=== PATIENT | female | born 1955 | race Caucasian/White ===

== ENCOUNTER 2020-03-27 16:39 | Emergency (ER) | payer BC ==
[2020-03-27 16:51] VITALS: BP 156/82; PULSE 81
[2020-03-27] MEDS ORDERED: LORazepam 2 MG/ML SDV IVPUSH ONE (17:33)
[2020-03-27] MEDS ORDERED: Sodium Chloride 0.9% 1,000 ML IV SCH (17:45)
[2020-03-27] MEDS ORDERED: predniSONE 20 MG Tab PO ONE (19:01)
--- NOTE | 2020-03-27 19:12 | EDM.PDOC ---
ED HPI GENERAL MEDICAL PROBLEM - General Chief Complaint: Chest Pain Stated Complaint: CHEST PAIN AND SOB Time Seen by Provider: 03/27/20 17:20 Source of Information: Reports: Patient History Limitations: Reports: No Limitations - History of Present Illness INITIAL COMMENTS - FREE TEXT/NARRATIVE: Patient is a 64-year-old female who presents to the emergency department with complaints of a one-month history of chest wall pain and shortness of breath. She states the symptoms have been occurring since she had pulmonary function tests done. The results of these pulmonary function test is that she has COPD. She has been seen in the clinic numerous times for the symptoms. She was started on Xanax which she states did not help, however she was only taking a couple occasions. She was seen in the clinic today by Megan Aldana. She started her on venlafaxine for anxiety, which she was under the impression would start working right away. He states that they also did a blood work including a troponin level at the clinic and that was found to be normal. They did check her TSH and T4, however those results would not be available until tomorrow. When she got home this evening from the clinic, her symptoms worsen. She complains of significant tightness throughout her chest and into her back and neck that worsens with breathing. She states that humidity aggravates her symptoms. She has never had treatment for COPD. Denies any fever, chills, nausea, or vomiting. Middle Chest Pain Score (Numeric/FACES): 10 - Related Data Allergies Allergy/AdvReac Type Severity Reaction Status Date / Time No Known Allergies Allergy Verified 03/27/20 16:51 Home Meds: Home Meds ALPRAZolam [Xanax] 0.25 mg PO BID PRN 03/27/20 [History] Azithromycin [Zithromax] 250 mg PO DAILY 03/27/20 [History] Fluticasone Propionate [Flonase Allergy Relief] 1 spray NASBOTH DAILY 03/27/20 [History] LORazepam [Ativan] 0.5 mg PO TID PRN #10 tablet 03/27/20 [Rx] Venlafaxine [Effexor] 75 mg PO DAILY 03/27/20 [History] predniSONE [Prednisone] 20 mg PO ASDIRECTED #15 tablet 03/27/20 [Rx] Past Medical History Cardiovascular History: Reports: High Cholesterol, Hypertension 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: Musculoskeletal History: Reports: Osteoarthritis Psychiatric History: Reports: Anxiety - Past Surgical History HEENT Surgical History: Reports: Tonsillectomy GI Surgical History: Reports: Appendectomy, Colonoscopy Female Surgical History: Reports: Other (See Below) Social & Family History - Tobacco Use Smoking Status *Q: Never Smoker Second Hand Smoke Exposure: No - Caffeine Use Caffeine Use: Reports: None - Recreational Drug Use Recreational Drug Use: No - Living Situation & Occupation Living situation: Reports: Occupation: Employed ED ROS GENERAL - Review of Systems Review Of Systems: See Below Constitutional: Reports: Decreased Appetite. Denies: Fever, Chills, Weakness HEENT: Reports: No Symptoms Respiratory: Reports: Shortness of Breath, Pleuritic Chest Pain. Denies: Wheezing, Cough Cardiovascular: Reports: Chest Pain. Denies: Lightheadedness, Palpitations Endocrine: Reports: No Symptoms GI/Abdominal: Reports: Decreased Appetite. Denies: Abdominal Pain, Diarrhea, Nausea, Vomiting : Reports: No Symptoms Musculoskeletal: Reports: Neck Pain, Back Pain Skin: Reports: No Symptoms Neurological: Reports: No Symptoms. Denies: Confusion, Dizziness, Headache Psychiatric: Reports: Anxiety Hematologic/Lymphatic: Reports: No Symptoms Immunologic: Reports: No Symptoms ED EXAM, GENERAL - Physical Exam Exam: See Below Exam Limited By: No Limitations General Appearance: Alert, WD/WN, No Apparent Distress Respiratory/Chest: No Respiratory Distress, Lungs Clear, Normal Breath Sounds, No Accessory Muscle Use, Other (Tenderness to palpation throughout her thorax anterior and posterior.) Cardiovascular: Normal Peripheral Pulses, Regular Rate, Rhythm, No Edema, No Gallop, No JVD, No Murmur, No Rub Neurological: Alert, Oriented, CN II-XII Intact, Normal Cognition, Normal Gait, Normal Reflexes, No Motor/Sensory Deficits Psychiatric: Normal Affect, Anxious Skin Exam: Warm, Dry, Intact, Normal Color, No Rash EKG INTERPRETATION EKG Date: 03/27/20 Time: 16:44 Rhythm: NSR Rate (Beats/Min): 81 [place]: Normal P-Wave: Present QRS: Normal ST-T: Normal QT: Normal Comparison: NA - No Prior EKG EKG Interpretation Comments: Sinus rhythm at 81/min Early R wave transition-consider septal hypertrophy Consider left atrial hypertrophy QTC mildly prolonged EKG interpreted by Dr. Romi ESPINAL Course - Vital Signs Last Recorded V/S: Last Vital Signs Temp 97.9 F 03/27/20 16:46 Pulse 81 03/27/20 16:46 Resp 22 H 03/27/20 16:46 BP 156/82 H 03/27/20 16:46 Pulse Ox 100 03/27/20 16:46 - Orders/Labs/Meds Orders: Active Orders 24 hr Category Date Time Status EKG Documentation Completion [RC] STAT Care 03/27/20 17:31 Active Labs: Laboratory Tests 03/27/20 03/27/20 03/27/20 Range/Units 16:50 16:50 16:50 WBC 4.71 (3.98-10.04) K/mm3 RBC 5.05 (3.98-5.22) M/mm3 Hgb 15.3 (11.2-15.7) gm/dl Hct 44.4 (34.1-44.9) % MCV 87.9 (79.4-94.8) fl MCH 30.3 (25.6-32.2) pg MCHC 34.5 (32.2-35.5) g/dl RDW Std Deviation 45.0 (36.4-46.3) fL Plt Count 140 L (182-369) K/mm3 MPV 10.4 (9.4-12.3) fl Neut % (Auto) 70.1 (34.0-71.1) % Lymph % (Auto) 18.5 L (19.3-51.7) % Bennett % (Auto) 10.6 (4.7-12.5) % Eos % (Auto) 0.4 L (0.7-5.8) Baso % (Auto) 0.2 (0.1-1.2) % Neut # (Auto) 3.30 (1.56-6.13) K/mm3 Lymph # (Auto) 0.87 L (1.18-3.74) K/mm3 Bennett # (Auto) 0.50 H (0.24-0.36) K/mm3 Eos # (Auto) 0.02 L (0.04-0.36) K/mm3 Baso # (Auto) 0.01 (0.01-0.08) K/mm3 D-Dimer, Quantitative 0.24 (0.19-0.50) mg/L Sodium 139 (136-145) mEq/L Potassium 3.2 L (3.5-5.1) mEq/L Chloride 100 (98-107) mEq/L Carbon Dioxide 22 (21-32) mEq/L Anion Gap 20.2 H (5-15) BUN 12 (7-18) mg/dL Creatinine 1.0 (0.55-1.02) mg/dL Est Cr Clr Drug Dosing 52.86 mL/min Estimated GFR (MDRD) 56 (>60) mL/min BUN/Creatinine Ratio 12.0 L (14-18) Glucose 94 (80-115) mg/dL Calcium 10.1 (8.5-10.1) mg/dL Total Bilirubin 0.9 (0.2-1.0) mg/dL AST 36 (15-37) U/L ALT 34 (14-59) U/L Alkaline Phosphatase 76 (46-116) U/L Troponin I < 0.017 (0.00-0.056) ng/mL C-Reactive Protein <0.2 (<1.0) mg/dL Total Protein 7.8 (6.4-8.2) g/dl Albumin 4.8 (3.4-5.0) g/dl Globulin 3.0 gm/dL Albumin/Globulin Ratio 1.6 (1-2) Free T4 1.33 (0.76-1.46) ng/dL TSH 3rd Generation 0.854 (0.358-3.74) uIU/mL Meds: Medications Discontinued Medications Generic Name Dose Route Start Last Admin Trade Name Freq PRN Reason Stop Dose Admin Sodium Chloride 1,000 mls @ 150 mls/hr 03/27/20 17:45 03/27/20 18:04 Normal Saline IV 150 mls/hr ASDIRECTED SHANA Administration Lorazepam 0.5 mg 03/27/20 17:33 03/27/20 18:04 Ativan IVPUSH 03/27/20 17:34 0.5 mg ONETIME ONE Administration Prednisone 20 mg 03/27/20 19:01 03/27/20 19:13 Prednisone PO 03/27/20 19:02 20 mg ONETIME ONE Administration - Re-Assessments/Exams Free Text/Narrative Re-Assessment/Exam: Patient is a 64-year-old female who presents with a one-month history of shortness of breath and chest wall discomfort. On exam, she is exquisitely tender throughout her thorax anterior and posteriorly and up into her neck. Lung sounds are clear. She does appear to be somewhat anxious. I have ordered CBC, CMP, CRP, TSH, free T4, troponin, d-dimer, EKG, 2 view chest x-ray. We will do NS at 150 mils per hour and Ativan 0.5 mg IV. 03/27/20 19:13 Patient is feeling much better after the medications given. States "I have not breathed this well in months ". Blood work was grossly unremarkable. Troponin was negative, d-dimer was negative, thyroid was normal, EKG was negative for any acute changes. Chest x-ray was negative for any acute abnormalities but did show hyperinflation consistent with her diagnosis of COPD. Since she reacted so well Ativan, I feel that anxiety is a big component of the tightness and tenderness in her chest wall. I feel that her COPD may also be contributing to her feeling of shortness of breath and increased mucus production in the presence of humidity. She does still have some tenderness throughout her chest wall. States that she does have a history of abdominal upset and does not feel that she will tolerate NSAIDs well. We will do a tapering dose of prednisone as well as a short course of Ativan as needed. I also did discuss that a muscle relaxer may be beneficial in the future, however I am hesitant to start this in addition to the prednisone and the Ativan. I recommend that she follow-up in the clinic within the next few days to reassess the efficacy of this treatment and to discuss the addition of a muscle relaxer if needed. She is in agreement with this plan. Discharge instructions as documented. Departure - Departure Time of Disposition: 19:16 Disposition: Home, Self-Care 01 Condition: Good Clinical Impression: Chest wall pain, Shortness of breath - Discharge Information *PRESCRIPTION DRUG MONITORING PROGRAM REVIEWED*: No *COPY OF PRESCRIPTION DRUG MONITORING REPORT IN PATIENT ELLIOTT: No Prescriptions: LORazepam [Ativan] 0.5 mg PO TID PRN #10 tablet PRN Reason: Anxiety predniSONE [Prednisone] 20 mg PO ASDIRECTED #15 tablet Instructions: Shortness of Breath, Adult, [id number], Chest Wall Pain Referrals: Dong Castañeda MD [Primary Care Provider] - Megan Aldana MD [Ordering Only Provider] - Forms: ED Department Discharge Additional Instructions: You were seen in the emergency department tonight for 1 month history of chest discomfort and shortness of breath that worsened this evening. Your work-up included blood work, EKG, and a chest x-ray. Your blood work was found to be normal. Your cardiac enzymes were normal. Your d-dimer which looks for the presence of blood clots was normal. Your thyroid was normal there was no abnormalities in your EKG heart. Your chest x-ray did not show any signs of pneumonia however did have some hyperinflation which would be consistent with your diagnosis of COPD. While in the ER you received IV fluids as well as Ativan which is an anxiety medication through your IV. This did improve your breathing substantially. As we discussed, I feel it is likely had a combination of your COPD and anxiety is causing your symptoms. You have been started on a tapering dose of prednisone. Take this medication as prescribed to reduce the inflammation in your chest wall. You have also been given Ativan for anxiety to be used as needed. Recommend that you take this at the onset of chest discomfort and shortness of breath. Do not take the Xanax (alprazolam) while taking this medication. I recommend that you schedule follow-up an appointment in the clinic for either Wednesday or Wednesday to assess the effectiveness of these medications and discuss further treatment as necessary. If you should experience any worsening symptoms, please not hesitate to return to the emergency department. Sepsis Event Note (ED) - Evaluation Sepsis Screening Result: No Definite Risk - Focused Exam Vital Signs: Vital Signs Temp Pulse Resp BP Pulse Ox 03/27/20 16:46 97.9 F 81 22 H 156/82 H 100 - My Orders Last 24 Hours: My Active Orders 03/27/20 17:31 EKG Documentation Completion [RC] STAT - Assessment/Plan Last 24 Hours: My Active Orders 03/27/20 17:31 EKG Documentation Completion [RC] STAT
--- NOTE | 2020-03-27 19:54 | CR ---
Chest: PA and lateral views the chest were obtained. Comparison: No previous chest imaging. Cardiac silhouette and mediastinum are normal. Lungs are clear with no acute parenchymal change. Slight degenerative change and mild scoliosis is noted within the spine. Impression: 1. Findings as noted above. Nothing acute is seen. Diagnostic code #2 Study was dictated in [facility]T
== END 2020-03-27 19:47 | disposition home or self-care (01) ==
LOC: JD.ED 16:39
DX: R07.89 Other chest pain (principal); R06.02 Shortness of breath; I10 Essential (primary) hypertension; F41.9 Anxiety disorder, unspecified; Z79.899 Other long term (current) drug therapy
CPT/HCPCS: 36415; 71046; 80053; 84439; 84443; 84484; 85025; 85379; 86140; 93005; 96374; 99285; J2060; J7030; J7512; 93010; 99284